=== PATIENT | female | born 1985 | race Caucasian/White ===

== ENCOUNTER 2018-02-24 12:14 | Emergency (ER) | payer BC ==
[~2018-02-24] VITALS: Ht 162.6 cm; Wt 59.0 kg
--- NOTE | 2018-02-24 12:50 | NUR ---
ULTRASOUND AT BEDSIDE
--- NOTE | 2018-02-24 14:09 | NUR ---
PT. VERBALIZED UNDERSTANDING OF AFTERCARE INSTRUCTIONS.Patient discharged to home in stable condition. Written and verbal after care instructions given. Patient verbalizes understanding of instruction.
[2018-02-24 14:10] VITALS: BP 114/69
== END 2018-02-24 14:12 | disposition home or self-care (01) ==
LOC: ER 12:17
DX: R59.1 Generalized enlarged lymph nodes (principal)
CPT/HCPCS: 76536-TC; A4606; Z7610

== ENCOUNTER 2021-02-20 12:07 | Emergency (ER) | payer BC, OTHER ==
[~2021-02-20] VITALS: Ht 165.1 cm; Wt 64.4 kg
[2021-02-20 12:25] VITALS: BP 139/72
[2021-02-20] MEDS ORDERED: IBUP-1957 PO (13:05)
[2021-02-20] MEDS ORDERED: AMOX-430 PO (13:05)
== END 2021-02-20 13:21 | disposition home or self-care (01) ==
LOC: ER 12:09
DX: J02.9 Acute pharyngitis, unspecified (principal); D64.9 Anemia, unspecified